=== PATIENT | female | born 2000 | race Two or more races ===

== ENCOUNTER 2025-06-20 13:29 | Emergency (ER) | payer MEDICAID, SELFPAY ==
[2025-06-20 14:06] VITALS: BP 129/55; PULSE 69; RESP 16; TEMP 37.8; O2SAT 99
--- NOTE | 2025-06-20 14:14 | PD.EDEYE ---
ED Eye Problem RME/HPI General Chief complaint: Eye Problems Stated complaint: Right eye has blood in it Time Seen by Provider: 06/20/25 14:09 Arrival date/time: 06/20/25 13:29 Limitations: no limitations RME / HPI RME / HPI Narrative: 24-year-old female woke up with right eye that appears bloodshot . States was putting mascara on and she noticed that her eye looks like it was bleeding. Denies recent vomiting or coughing. Denies eye trauma that she can recall. Does not wear contacts. Up-to-date on her tetanus vaccine. No associated headache Related Data Previous Rx's ?Medication ?Instructions ?Recorded erythromycin 5 mg/gram (0.5 %) eye 0.5 inch ophthalmic (eye) QID 7 06/20/25 ointment days #3.5 grams Allergies Allergy/AdvReac Type Severity Reaction Status Date / Time No Known Drug Allergies Allergy Verified 06/20/25 13:32 Review of Systems Review of Systems Systems Reviewed: All systems reviewed, normal except as documented Constitutional Constitutional: Denies fever(s) Eyes Eyes: Reports as per HPI ED Exam General Limitations: Present no limitations General appearance: Present alert and in no apparent distress Head Head exam: Present atraumatic Eye Eye exam: Present PERRL, EOMI and other (Subconjunctival hemorrhage, Anderson lamp exam with some uptake suggesting corneal abrasion as well) ENT ENT exam: Present normal exam, normal oropharynx and mucous membranes moist Neck Neck exam: Present normal inspection, full ROM and trachea midline Chest Chest inspection: Present normal inspection and symmetric chest wall rise Respiratory Respiratory exam: Present normal lung sounds bilaterally Cardiovascular Cardiovascular exam: Present regular rate, normal rhythm and normal heart sounds Extremities Exam Extremities exam: Present normal inspection and full ROM Psychiatric Psychiatric exam: Present normal affect and normal mood Skin Skin exam: Present warm, dry, intact and normal color Course Quality Measures none Orders Category Date Time Status Anderson Lamp to Bedside X1 Care 06/20/25 14:14 Completed Fluorescein Sodium [Bio-Mervat] Med 06/20/25 14:14 Discontinued 1 mg RIGHT EYE X1 ONE Proparacaine Op Ivonne 0.5% [Alcaine Op Ivonne 0.5%] Med 06/20/25 14:14 Discontinued See Dose Instructions RIGHT EYE X1 ONE Vital Signs Vital signs: Vital Signs Temperature 100.0 F 06/20/25 14:06 Pulse Rate 69 06/20/25 14:06 Respiratory Rate 16 06/20/25 14:06 Blood Pressure 129/55 L 06/20/25 14:06 Pulse Oximetry (%) 99 06/20/25 14:06 Oxygen Delivery Method Room Air 06/20/25 14:06 PROCEDURES: Anderson Lamp Exam Right eye: Flourescein uptake:: Yes Anderson Lamp Findings: Corneal abrasion Additional comments: Appropriate eye with fluorescein and proparacaine Eye Patient data External records reviewed:: [facility] previous records Clinical information provided by:: patient Social determinants that could affect healthcare access:: other (specify) (No PCP appointment on weekend) Patient has the following chronic illnesses:: None How is presenting disease/condition affected by chronic disease/condition?: no chronic disease Evaluation data The following diagnostics were reviewed and interpreted by me:: other (specify) (None) Lab and/or radiology exams considered but not ordered:: No imaging or workup warranted diagnosis of clinical exam with Anderson lamp Interpretation Summary: Anderson lamp was positive Medications / Prescriptions Medications or Prescriptions considered but not ordered:: Narcotics for pain considered however patient not having pain at this time Medication administrations:: Medication Administration History Discontinued Medications Fluorescein Sodium (Fluorescein Sod 1 Mg Strp) 1 mg RIGHT EYE X1 ONE Stop: 06/20/25 14:15 Last Admin: 06/20/25 14:37 Dose: 1 mg Documented By: LT Proparacaine HCl (Proparacaine Op Ivonne 0.5% 15 Ml Btl) 0 drop RIGHT EYE X1 ONE Stop: 06/20/25 14:15 Last Admin: 06/20/25 14:36 Dose: 225 drop Documented By: Comments: administered by provider Amie See above Consultations Consultation(s) initiated? (list below): No Diagnosis Eye Problem Differential Diagnosis: corneal abrasion, conjunctivitis, acute iritis, hyphema, periorbital cellulitis, subconjunctival hemorrhage, corneal ulcer and ruptured globe Most likely diagnosis given after review of the tests above:: Right eye subconjunctival hemorrhage Right eye corneal abrasion Admission Indicated Admission indicated?: not indicated Admission Request Was there a request for admission?: No Disposition Plan Disposition Plan: Discharge Discharge Attestation Discharge Attestation: The patient and all family members were given an opportunity to ask questions and understood the discharge instructions. Discharge instructions specifically effects, indications for sooner follow up or return to the emergency department, and the expected course of current diagnosis. Patient condition: Stable Discharge Plan Plan Patient Disposition: HOME (Self Care) Discharge Disposition comment: fu in 2-3days Prescriptions/Referrals Prescriptions/Med Rec: New erythromycin 5 mg/gram (0.5 %) ointment 0.5 inch ophthalmic (eye) QID 7 Days Qty: 3.5 0RF Problem List Clinical Impression: Subconjunctival hemorrhage, Corneal abrasion Patient/Caregiver Discharge Instructions Education Materials: ED Corneal Abrasion, ED Subconjunctival Hemorrhage Print Language: Urdu Stand Alone Forms: Ysabel Award Info., Patient Portal Info Letter PA/MEDICAL CERTIFICATION SPECIALIST Supervising Physician PA/MEDICAL CERTIFICATION SPECIALIST Supervising Physician: Dr. Barry
[2025-06-20] MEDS: PROPARACAINE OP SOL 0.5% 15 ML BTL RIGHT EYE (14:36)
[2025-06-20] MEDS: FLUORESCEIN SOD 1 MG STRP RIGHT EYE (14:37)
== END 2025-06-20 15:30 | disposition home or self-care (01) ==
LOC: SERX 14:58
PROVIDERS: Emergency Provider Emergency Medicine; PCP Physician Assistant
DX: S05.01XA Injury of conjunctiva and corneal abrasion without foreign body, right eye, initial encounter (principal); H11.31 Conjunctival hemorrhage, right eye; X58.XXXA Exposure to other specified factors, initial encounter
CPT/HCPCS: 99281